=== PATIENT | male | born 1940 | race Caucasian/White ===

== ENCOUNTER 2017-11-09 16:26 | Emergency (ER) | payer OTHER ==
[~2017-11-09] VITALS: Ht 172.7 cm; Wt 71.7 kg
[2017-11-09 18:11] VITALS: BP 113/64
== END 2017-11-09 18:12 | disposition home or self-care (01) ==
LOC: EME 16:26
DX: S61.411A Laceration without foreign body of right hand, initial encounter (principal); S80.211A Abrasion, right knee, initial encounter; W18.30XA Fall on same level, unspecified, initial encounter; Y93.02 Activity, running; Z23 Encounter for immunization
CPT/HCPCS: 73130; 99281; 99284